=== PATIENT | female | born 2000 | race Caucasian/White ===

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

== ENCOUNTER 2025-01-17 08:11 | Outpatient (CLI) | payer BC, SELFPAY ==
[2025-01-17] VITALS (21 sets, daily range): BP systolic 102–138; BP diastolic 71–92; PULSE 51–89
[~2025-01-17 08:11] MED LIST changes: +PANT-47 PO
--- NOTE | 2025-01-18 20:35 | CARDIOLOGY REPORT ---
DATE OF SERVICE: 01/17/2025 DICTATING PHYSICIAN: JANES Real MD CARDIAC CATHETERIZATION INDICATION: The patient is a 24-year-old female with episodes of dizziness. CARDIOLOGY: JANES Real MD PROCEDURE TECHNIQUE: In supine resting condition, the patient's heart rate of 59 per minute with blood pressure 128/77. The patient was asymptomatic. At 20 minutes into 70-degree tilt, the patient's heart rate was 75 per minute with blood pressure of 117/77. The patient felt hot and sweaty. After 40 minutes of 72-degree tilt, the patient's heart rate was 70-84 per minute with blood pressure of 119/92. In supine recovery condition, the patient's heart rate of 51 per minute with blood pressure of 119/72. IMPRESSION: A 24-year-old female with cardiac tilt table. Findings are negative for cardiodepressive type of syncope. Her heart rate did increase from 59 per minute to 84 per minute at the height of the tilt and her blood pressure was dropped from 128/77 to 119/22 mmHg,, recommend clinical correlation. The patient did have mild orthostasis with mild increase in her heart rate. Recommend clinical correlation. JANES Real MD TID: [id number] RECEIPT: [id number] NEVAEH/WAYLON/ROSALVA MTDD
== END 2025-01-17 23:59 | disposition home or self-care (01) ==
LOC: CARD DIAG 08:11
PROVIDERS: ATTEND Internal Medicine Cardiovascular Disease
DX: R42 Dizziness and giddiness (principal)
CPT/HCPCS: 93660